=== PATIENT | female | born 1955 | race Caucasian/White ===

== ENCOUNTER 2018-07-12 19:18 | Emergency (ER) | payer OTHER, SELFPAY ==
[2018-07-12 19:20] VITALS: BP 167/81; PULSE 95; PULSE 99; RESP 18; TEMP 37.2; O2SAT 98; O2SAT 99; BMI 30.9
--- NOTE | 2018-07-12 19:38 | ED.DCSUM_ITS ---
- ER Visit Summary Date of Service: 07/12/18 Chief Complaint: Tooth pain, right-sided facial swelling History of Present Illness: The patient is a 63 F who has tooth pain and right- sided facial swelling. Started 3 days. She has a dull pain in the right upper part of her jaw. She noticed some facial swelling as well. She denies fevers. She went to a urgent care in [facility] who placed her on penicillin. She went back the next day because she had more swelling and they added clindamycin. She comes in today because of continued pain and swelling. She has appointment scheduled for this week. Physical Examination: Vital signs reviewed. HEENT exam reveals right-sided facial swelling. There is no gingival abscess. She does have tenderness to tooth percussion at tooth #2 and 3. There is no cervical lymphadenopathy. Test Results: None performed Emergency Department Course and Treatment: She states that the provider at this urgent care tried to do an incision and drainage. There is no focal area of abscess. This is just generalized facial swelling likely from a tooth infection. I will give her 1 dose of IV clindamycin here. She will need to follow-up with her dentist this week. She will continue NSAIDs for pain. Treatment Plan: [] Disposition: Discharge Impression: Odontalgia, right sided facial swelling This note was generated with [employer] dictation software. It may contain incorrect words, spelling, and punctuation that were not noted in review of the chart prior to signing ED Disposition - Plan for ED Patient: Chief Complaint: Dental Referrals: Reinaldo Juan DO [Primary Care Provider] -
--- NOTE | 2018-07-12 19:38 | ED.DEP ---
ED Disposition - Plan for ED Patient: Disposition: Home or Assisted Living Chief Complaint: Dental Instructions: ED Tooth Pain Referrals: Reinaldo Juan DO [Primary Care Provider] -
[2018-07-12 20:35] VITALS: PULSE 89; RESP 18; O2SAT 98
== END 2018-07-12 20:35 | disposition home or self-care (01) ==
LOC: ED 19:51
PROVIDERS: Emergency Provider Emergency Medicine; Family Provider Student in an Organized Health Care Education/Training Program; PCP Student in an Organized Health Care Education/Training Program
DX: K08.89 Other specified disorders of teeth and supporting structures (principal); R22.0 Localized swelling, mass and lump, head; I10 Essential (primary) hypertension; Z79.899 Other long term (current) drug therapy
CPT/HCPCS: 96365; 99283; A4216

== ENCOUNTER 2018-07-25 06:20 | Emergency (ER) | payer OTHER, SELFPAY ==
[2018-07-25 06:21] VITALS: BP 170/82; PULSE 76; RESP 15; TEMP 36.8; BMI 32.0
--- NOTE | 2018-07-25 06:38 | ED.VISSUMM ---
- ER Visit Summary Date of Service: 07/25/18 Chief Complaint: Facial swelling History of Present Illness: The patient is a 63 F presents to the emergency department facial swelling. Patient had a dental abscess about 2 weeks ago. She was placed on clindamycin and had improvement. She is been following with an woodworking bench carpenter and had a root canal. She states that they finished yesterday. She states after the procedure, she discussed with her oral surgeon about antibiotics. She states that she still had a full prescription of penicillin at home. She was counseled that if she had any swelling or pain that she should take it. She states that about 5 PM, she noted some swelling in her cheek. She took the penicillin, but feels like the swelling is gotten worse. She denies any trouble speaking or swallowing. She denies any fevers or chills. She has no history of immunosuppression. Physical Examination: Exam is relatively unremarkable. Patient does have evidence of dental abscess over the root canal tooth #4. There is some swelling of the right upper cheek. There is some mild drainage. The oropharynx is patent. There is no Julio angina. She has no trismus or stridor. Test Results: [] Emergency Department Course and Treatment: My suspicion is that she likely had some bacteria that was seated during the procedure. She has a draining abscess. It does not involve the submental space. She has no evidence of Julio angina. I am going to change her antibiotic to Augmentin for better tissue penetrance. She is given her first dose here. She was counseled on concerning symptoms and reasons to return. She will continue warm compresses to the area. She is going to follow-up with her oral surgeon on Friday. Treatment Plan: [] Disposition: Discharge Impression: 1. Dental abscess This note was generated with [employer] dictation software. It may contain incorrect words, spelling, and punctuation that were not noted in review of the chart prior to signing ED Disposition - Plan for ED Patient: Instructions: ED Abscess Dental Prescriptions: Amox/Clavulanate Tablet [Augmentin Tablet] 875 mg PO Q12H #20 tab Referrals: Reinaldo Juan DO [Primary Care Provider] -
[2018-07-25] MEDS: Amox/Clavulanate 875 MG Tablet PO (06:45)
[2018-07-25 06:46] VITALS: BP 170/82; PULSE 77; RESP 15; O2SAT 98
== END 2018-07-25 06:48 | disposition home or self-care (01) ==
LOC: ED 06:40
PROVIDERS: Emergency Provider Emergency Medicine; Family Provider Student in an Organized Health Care Education/Training Program; PCP Student in an Organized Health Care Education/Training Program
DX: K04.7 Periapical abscess without sinus (principal); I10 Essential (primary) hypertension; Z98.818 Other dental procedure status; Z79.899 Other long term (current) drug therapy
CPT/HCPCS: 99283

== ENCOUNTER 2021-06-26 09:03 | Outpatient (CLI) | payer MEDICARE, BC, SELFPAY | END 2021-06-26 23:59 | disposition short-term general hospital (02) | LOC: LABSPEC 09:03 | PROVIDERS: PCP Student in an Organized Health Care Education/Training Program; Visit Provider Physician Assistant Surgical | DX: U07.1 COVID-19 (principal) | CPT/HCPCS: 87635; U0003; U0005 ==

== ENCOUNTER 2021-09-15 09:29 | Emergency (ER) | payer MEDICARE, BC, SELFPAY ==
[2021-09-15 09:31] VITALS: BP 168/79; PULSE 76; RESP 18; TEMP 35.8; O2SAT 97; BMI 30.9
--- NOTE | 2021-09-15 09:56 | VDLE_ITS ---
Reason For Study: Swelling Procedure LEFT This is a venous duplex using B-mode, color GSV is normal. flow and spectral Doppler. CFV is compressible, spontaneous, phasic, Exam performed portable in ED. competent, and demonstrates normal A preliminary report was called and/or faxed augmentation. to Huseyin Ramirez SALES ORDER PROCESSOR. FV is compressible, spontaneous, phasic, competent and demonstrates normal augmentation. POP V is compressible, spontaneous, phasic, competent and demonstrates normal augmentation. T/P Trunk is compressible. PTV is compressible. LT PerV is compressible. VL/Venous Duplex US, Unilateral Interpretation Summary There is no evidence of left lower extremity deep vein thrombosis. Left great s aphenous vein appears patent and compressible segmentally. Ordering Physician: Huseyin Ramirez Referring Physician: Reinaldo Juan Performed By: Lisa Moctezuma, DIANNE, RVT
--- NOTE | 2021-09-15 09:58 | EDS_ITS ---
HPI <CARMEN Levi - Last Filed: 09/15/21 10:50> History of Present Illness Chief Complaint: Lower Extremity Injury Narrative Narrative: 66-year-old female with history of hypertension, upper lipidemia presents to the emergency department with complaints of left leg redness which she saw this morning. Patient said she was coming up the steps, saw some redness to her left calf and was concerned for blood clot. Patient is leaving for [place] tomorrow morning early, and she is concerned that she might have a blood clot and would like an ultrasound. Patient denies any difficulty breathing, chest pain, fever or chills. [facility] <CARMEN Levi - Last Filed: 09/15/21 10:50> [facility] Medical History (Updated 09/15/21 @ 10:49 by CARMEN Levi) Hypertension Home Medications ezetimibe [Zetia] 10 mg PO DAILY 09/15/21 [History Last Taken Unknown] lisinopril 10 mg PO DAILY 09/15/21 [History Last Taken Unknown] lisinopril-hydrochlorothiazide 1 tab PO QHS 09/15/21 [History Last Taken Unknown] Allergy/AdvReac Type Severity Reaction Status Date / Time acetaminophen [From Tylenol] Allergy Hives Verified 09/15/21 09:29 Surgical History (Updated 09/15/21 @ 09:38 by Lindsey Tom) History of History of tubal ligation Social History Smoking Status: Never smoker ROS <CARMEN Levi - Last Filed: 09/15/21 10:50> ROS ED ROS Narrative Constitutional: Negative for fever, chills, weight loss or gain, weakness Eyes: Negative for vision loss, vision change, double vision ENT: Negative for any hearing changes, ringing in the ears, discharge, pain Nose: Negative for any congestion, runny nose, sinus pain, allergies Throat: Negative for any sore throat, swelling, voice changes, Cardiovascular: Negative for any chest pain, tightness, palpitations, racing heartbeat Respiratory: Negative for any cough, sputum production, hemoptysis, shortness of breath, shortness of breath on exertion, Gastrointestinal: Negative for any abdominal pain, nausea, vomiting, diarrhea, constipation, blood in stool, blood in vomit : Negative for any urinary frequency, incontinence, dysuria, retention, blood in urine Muscle skeletal: Negative for any muscle joint pain, stiffness, myalgias, arthralgias, neck pain, back pain. Positive for left leg redness Neurological: Negative for any headache, dizziness, syncope, numbness or tingling Skin: Negative for any rashes, lumps, itching, abrasions, lacerations Psychiatric: Negative for any depression, anxiety, stress, suicidal ideation, homicidal ideation Hematologic: Negative for any easy bruising, excessive bruising, easy bleeding Allergies: Negative for any eczema, hives, rash EXAM <CARMEN Levi - Last Filed: 09/15/21 10:50> Physical Exam Const Vital Signs: 09/15/21 09:31 Temperature 96.4 F L Temperature Source Temporal Pulse Rate 76 Respiratory Rate 18 Blood Pressure 168/79 H Blood Pressure Mean 108 Pulse Ox 97 Oxygen Delivery Method Room Air Positive well nourished and well developed General Appearance ED: well developed HEENT Reports TM's clear Tympanic Membrane ED: Yes TM's clear Eyes PERRL and EOMs intact bilaterally Neck no lymphadenopathy and supple Chest Wall inspection of chest normal and palpation of chest normal Resp normal respiratory effort and clear to auscultation bilaterally Cardio regular rate and regular rhythm GI normal to inspection, nondistended, normoactive bowel sounds, non-tender and non-distended Auscultation: normoactive bowel sounds Palpation: soft Back/Spine no CVA tenderness Extremity normal to inspection Extremity Narrative: Patient's exam of the bilateral lower extremities were unremarkable. There is currently no redness, pain to palpation to the left calf. Patient states that she also believes that there is no redness at this time. However due to the patient's vacation coming tomorrow, she would like to be sure. Patient has +2 pedal pulses. Neuro oriented x3 and CN's II-XII intact bilaterally Sensorium / Orientation: alert Motor Exam: strength 5/5 throughout Psych mental status grossly normal Skin no rashes or lesions noted <Dr. Nena Yang DO - Last Filed: 09/15/21 10:17> Physical Exam Const Vital Signs: 09/15/21 09:31 Temperature 96.4 F L Temperature Source Temporal Pulse Rate 76 Respiratory Rate 18 Blood Pressure 168/79 H Blood Pressure Mean 108 Pulse Ox 97 Oxygen Delivery Method Room Air MDM <CARMEN Levi - Last Filed: 09/15/21 10:50> [facility] Narrative Medical decision making narrative: Patient appears well, patient appears nontoxic, vital signs are stable. Patient presents to the emergency department with left leg redness, concern for a DVT. Patient's physical examination was grossly unremarkable, patient's ultrasound of the left lower extremity was negative for any DVT. Patient was relieved, patient will get out every so often during her long road trips and walk around, perform gentle stretching. Patient struck to return for any worsening redness or swelling to the lower extremities, chest pain, shortness of breath. At this time, patient stable for discharge. <Dr. Nena Yang DO - Last Filed: 09/15/21 10:17> [facility] Narrative Medical decision making narrative: I have personally performed a face to face assessment of the patient and have reviewed the STEVIE Note. I performed a substantive portion of the visit including all aspects of the following. My ricardo findings include: History is [patient presents with redness to her left leg that she noted this morning when walking down the basement steps. Patient concerned about a DVT. Patient is going to be traveling and wants to make sure she does not have a blood clot. She denies any trauma to her leg. Denies recent travel or surgery. No prior history of PE or DVT. She denies chest pain or shortness of breath. She denies fevers.] Exam is [HEENT-PERRLA, EOMI. Cranial nerves II through XII grossly intact. TMs clear. Mucous membranes moist. No adenopathy. Cardiovascular-regular rate and rhythm without murmur or ectopy Lungs-clear to auscultation, chest wall stable without crepitus or subcu emphysema Abdomen-normoactive bowel sounds, soft, nontender, no rebound or rigidity, no peritoneal signs. Extremities-intact ?4, normal range of motion, normal pulses, atraumatic. No ropes or cords palpated to the left lower extremity. No evidence of cellulitis. No edema noted. Neurovascularly intact.] Medical Decison Making [patient had a venous Doppler of the left lower extremity that was negative for DVT. At this point I do not appreciate any abnormalities to her leg. Patient advised to follow-up with her primary care physician as needed.] Other additions or changes: [None] Discharge Plan Triage Chief Complaint: Lower Extremity Injury ED Midlevel Provider: Huseyin Ramirez ED Provider: Nena Yang Dx/Rx/DC Orders Clinical Impression: Left leg pain Instructions: ED Myalgias Prescriptions: No Action lisinopril-hydrochlorothiazide 20-12.5 mg tablet 1 tab PO QHS RF: 0 lisinopril 10 mg tablet 10 mg PO DAILY RF: 0 ezetimibe [Zetia] 10 mg Tablet 10 mg PO DAILY RF: 0 Primary Care Provider: Reinaldo Juan Referrals: Reinaldo Juan DO [Primary Care Provider] - Activity Restrictions/Additional Instructions: You had a negative venous duplex today of the left leg. Please get out of your car several times during a road trip and stretch and walk around. Print Language: Portuguese Disposition Disposition: Home, Self Care
== END 2021-09-15 11:12 | disposition home or self-care (01) ==
LOC: ED 10:50
PROVIDERS: Emergency Provider Emergency Medicine; PCP Student in an Organized Health Care Education/Training Program; Visit Provider Emergency Medicine
DX: M79.605 Pain in left leg (principal); I10 Essential (primary) hypertension; Z79.899 Other long term (current) drug therapy
CPT/HCPCS: 93971; 99282

== ENCOUNTER 2024-03-13 16:53 | Emergency (ER) | payer MEDICARE, OTHER, SELFPAY ==
[2024-03-13 16:54] VITALS: BP 159/84; PULSE 93; RESP 17; TEMP 36.6; O2SAT 99; BMI 29.3
--- NOTE | 2024-03-13 16:56 | EKG12_ITS ---
Test Reason : CP Blood Pressure : / mmHG Vent. Rate : 086 BPM Atrial Rate : 086 BPM P-R Int : 160 ms QRS Dur : 076 ms QT Int : 380 ms P-R-T Axes : 057 012 030 degrees QTc Int : 454 ms Normal sinus rhythm Normal ECG Confirmed by ANAYELI LOPEZ MD ([id number]), field map editor KADEN DONALD ([id number]) on 03/16/2024 1:49:51 PM Referred By: Confirmed By:ANAYELI LOPEZ MD
--- NOTE | 2024-03-13 17:12 | RAD_ITS ---
INDICATION: chest pain EXAMINATION/TECHNIQUE: X-RAY - XR Chest 1 View COMPARISON: No relevant prior comparison study available FINDINGS: LINES/DEVICES: None. LUNGS: No consolidation. No pneumothorax. MEDIASTINUM: Aorta is atherosclerotic. CARDIAC SILHOUETTE: Not enlarged. BONES AND SOFT TISSUES: No acute abnormalities. RAD/Chest 1 View (Portable) IMPRESSION: No evidence of active intrathoracic disease. Electronically Signed: Nataly Deluna MD at 19:14 EDT ,
[2024-03-13 17:56] LABS: Absolute Lymphocyte Count 2.66 X10^3/uL (0.83-4.51); Absolute Neutrophil Count 8.6 X10^3/uL (2.0-7.7); Basophil# 0.08 X10^3/uL; Basophil% 0.6 % (0-1); Eosinophils% 0.8 % (0-5); Hematocrit 44.2 % (37-47); Hemoglobin 14.7 g/dL (12.0-15.0); Lymphocyte # 2.66 X10^3/ul (0.83-4.51); Lymphocyte % 21.6 % (19-41); Mean Corp Hgb Conc 33.3 g/dL (32-36); Mean Corpuscular Hgb 30.1 pg (27.0-32.0); Mean Corpuscular Volume 90.6 fL (81-99); Mean Platelet Vol. 10.7 fl (6.2-12.0); Monocyte# 0.77 X10^3/uL; Monocyte% 6.3 % (0-10); NRBC Flagged by Analyzer 0 % (0-5); Neutrophil # 8.63 X10^3/uL (2.7-7.7); Neutrophil % 70.1 % (47-70); Platelet Count 174 K/mm3 (150-450); RBC Distribution Width CV 12.9 % (11.6-14.6); RBC Distribution Width SD 42.7 fl (35.1-43.9); Red Blood Count 4.88 M/mm3 (4.2-5.4); White Blood Count 12.3 K/mm3 (4.4-11.0)
[2024-03-13 18:18] LABS: Anion Gap 7 (5-15); BUN 19 mg/dL (7-18); BUN/Creat Ratio 20.6 RATIO (10-20); Calcium,Total 9.1 mg/dL (8.5-10.1); Chloride 103 mmol/L (98-107); Creatinine, Serum 0.92 mg/dL (0.55-1.02); EST Glomerular Filtration Rate 64 mL/min (>60); Est Glom Filt Rate - Afr Amer 77 mL/min (>60); Glucose 164 mg/dL (74-106); Sodium Level 137 mmol/L (136-145); Troponin-I HS (w/2H Reflex) 9 pg/mL (3.0-54.0)
--- NOTE | 2024-03-13 18:47 | EDS_ITS ---
HPI History of Present Illness Chief Complaint: Chest Pain [facility] Medical History (Updated 09/23/21 @ 00:01 by Mik Reyes) Hypertension Home Medications ?Medication ?Instructions ?Recorded ?Last Taken ?Type ezetimibe 10 mg tablet (Zetia) 10 mg PO DAILY 09/15/21 Unknown History lisinopril 10 mg tablet 10 mg PO DAILY 09/15/21 Unknown History lisinopril 20 1 tab PO QHS 09/15/21 Unknown History mg-hydrochlorothiazide 12.5 mg tablet benzonatate 100 mg capsule 100 mg PO TID PRN cough #20 caps 03/13/24 Unknown Rx Allergy/AdvReac Type Severity Reaction Status Date / Time acetaminophen (From Tylenol) Allergy Hives Verified 03/13/24 16:54 Surgical History (Updated 09/15/21 @ 09:38 by Lindsey Tom) History of History of tubal ligation Social History Smoking Status: Never smoker EXAM Physical Exam Const Vital Signs: 03/13/24 16:54 03/13/24 16:56 03/13/24 18:30 Temperature 97.9 F Temperature Source Temporal Pulse Rate 93 Respiratory Rate 17 Respiratory Effort Normal Non-Labored Blood Pressure 159/84 H Blood Pressure Mean 109 Pulse Ox 99 Oxygen Delivery Method Room Air Room Air 03/13/24 19:15 03/13/24 20:00 03/13/24 20:15 Temperature Temperature Source Pulse Rate 83 80 76 Respiratory Rate 20 H 19 H 21 H Respiratory Effort Blood Pressure 155/75 H 130/54 H 103/72 Blood Pressure Mean 99 74 78 Pulse Ox Oxygen Delivery Method 03/13/24 21:00 Temperature 98 F Temperature Source Pulse Rate 76 Respiratory Rate 18 Respiratory Effort Blood Pressure 138/67 H Blood Pressure Mean 90 Pulse Ox 98 Oxygen Delivery Method MDM MDM MDM Narrative Medical decision making narrative: HISTORY OF PRESENT ILLNESS: 69-year-old female presents with concern for lightheadedness, chest pain and nearly passing out. She states this began at 3 PM approximately 3 hours prior to arrival. Lasted for several minutes. No she was initially hot they became dizzy and folic she was in a pass out. She not lose consciousness. She laid down and symptoms resolved she notes no symptoms at this time. She further states she had no chest pain, headache, abdominal pain. No recent nausea vomiting She does note travel to [place] several weeks ago and since then she has had a mild cough is nonproductive The patient denies recent surgery in the last 4 weeks or immobilization in the last 3 days, denies previous diagnosis of DVT or PE, hemoptysis, unilateral leg swelling or malignancy with treatment the last 6 months or palliative. No estrogen use noted. Patient denies sudden onset of pain, no tearing sensation, no migratory symptoms, no new numbness, weakness or loss of sensation. Patient denies family history or personal history of Connective tissue disorders (Marfan's Syndrome, Elvia Danlos etc) REVIEW OF SYSTEMS: Pertinent positives: Near syncope, lightheadedness, chest pain, diaphoresis Pertinent negatives: Leg swelling, hemoptysis, syncope, focal neurologic PHYSICAL EXAM: Nursing triage notes reviewed, Vital signs reviewed Constitutional: please see mdm HENT: MMM Eyes: Pupils equal round and reactive to light, Extraocular muscles intact Neck: No stridor, no JVD, full neck ROM Lungs: Clear to auscultation, No wheezing or rales. No increased work of breathing, no conversational dyspnea, no accessory muscle use, no nasal flaring. No respiratory distress noted Heart: Regular rate and rhythm, No murmurs, No rubs and No gallops, 2+ distal pulses (radial, femoral, posterior tibial) in all extremities Abdomen: Soft, there is no tenderness, rigidity, rebound or guarding, no obvious peritoneal signs, no palpable pulsatile abdominal masses, no auscultated abdominal bruit : No CVAT Extremities: No edema Neuro: No focal neurological deficits, cranial nerves II through XII intact, 5/5 strength in all extremities. Intact sensation to light touch in all extremities, 2+ reflexes bilateral patella tendons. Normal gait. No ataxia. Skin: No rash or lesions noted MEDICAL DECISION MAKING: Chief Complaint: Chest pain, lightheadedness, near syncope External records reviewed: Reviewed prior medications, diagnoses Factors affecting care: Hyperlipidemia, hypertension MDM Narrative: The patient was initially hypertensive with a blood pressure 159/84 otherwise afebrile and nontoxic-appearing. Exam without focal cardiopulmonary normalit ies. No focal neurologic deficits. No stigmata of VTE, CHF aortic dissection or PE. I considered the following differential diagnosis: ACS, arrhythmia, anemia, electro disturbance, dehydration, ALL IMAGES (IF OBTAINED) HAVE BEEN PERSONALLY REVIEWED AND INTERPRETED BY MYSELF. Protocol orders were obtained in triage secondary to poor department of conditions including high volumes and high acuity. CBC, troponin with delta, BNP, chest x-ray and EKG obtained in triage. EKG was reviewed and showed normal sinus rhythm, normal axis, normal intervals, no STEMI CBC showed leukocytosis suggestive of systemic summation, no anemia or thrombocytopenia BMP without evidence of significant electrolyte abnormalities, no anion gap, no acute kidney injury. High-sensitivity troponin is negative, no evidence of myocardial ischemia x 2 I have personally reviewed the patient's chest x-ray. Chest x-ray is unremarkable for pulmonary edema, pneumothorax, pneumonia or focal cardiopulmonary abnormality. Upon reassessment patient's blood pressure improved to 103/72. The synthesis of the patient's history, physical exam, labs images suggest no acute life-limiting etiology. May have been a vasovagal event given warmth, dizziness that resolved upon position change with no prolonged confusion or postictal state. There was no clinical or physical exam evidence to suggest PE, aortic dissection or CHF. Patient's vitals are stable her labs images are unremarkable she is appropriate for discharge home for close outpatient follow-up for Holter monitor and possible stress testing if indicated. Given report of ongoing cough will prescribe Tessalon Perles for symptomatic relief. The patient and/or family, caregivers express understanding. The patient and/or family, caregivers agrees with the plan. Shared decision making: I will have a discussion with the patient and or visitors regarding risk/benefits of further testing or admission. They will be made aware of of the risk/benefits inherent in this decision they will be given the opportunity to voice understanding. Total critical care time today provided was at least 0 minutes. This excludes separately billable procedures. Critical care time (if documented) is secondary to the patient having high probability of clinically significant/life threatening deterioration in the patient's condition which required my urgent intervention. Impression: 1. Near syncope 2. History of hypertension Dispo: Discharge home This note was generated with [employer] dictation software. It may contain incorrect words, spelling, and punctuation that were not noted in review of the chart prior to signing. Lab Data Labs: Laboratory Results - last 24 hr 03/13/24 03/13/24 17:45 20:00 WBC 12.3 H RBC 4.88 Hgb 14.7 Hct 44.2 MCV 90.6 MCH 30.1 MCHC 33.3 RDW Std Deviation 42.7 RDW Coeff of Le[place] 12.9 Plt Count 174 MPV 10.7 Immature Gran % (Auto) 0.600 Neut % (Auto) 70.1 H Lymph % (Auto) 21.6 [place] % (Auto) 6.3 Eos % (Auto) 0.8 Baso % (Auto) 0.6 Absolute Neuts (auto) 8.6 H Absolute Lymphs (auto) 2.66 Nucleated RBC % 0 Sodium 137 Potassium 4.0 Chloride 103 Carbon Dioxide 28.0 Anion Gap 7 BUN 19 H Creatinine 0.92 Estim Creat Clear Calc 61.60 Est GFR (MDRD) Af Amer 77 Est GFR (MDRD) Non-Af 64 BUN/Creatinine Ratio 20.6 H Glucose 164 H Calcium 9.1 Troponin I High Sens 9 10 Radiography Diagnostic Testing: Clinical Impression(s) from Imaging Studies Chest X-Ray 03/13/24 17:12 IMPRESSION: No evidence of active intrathoracic disease. Electronically Signed: Nataly Deluna MD at 19:14 EDT , Discharge Plan Triage Chief Complaint: Chest Pain ED Provider: Clay Martinez Dx/Rx/DC Orders Instructions: ED Cough Chronic Uncertain Cause Adult, ED Near-Fainting, Uncertain Cause Prescriptions: New benzonatate 100 mg capsule 100 mg PO TID PRN (Reason: cough) Qty: 20 0RF No Action lisinopril-hydrochlorothiazide 20-12.5 mg tablet 1 tab PO QHS Patient Comments: TAKE 1 TABLET BY MOUTH EVERY DAY IN THE MORNING lisinopril 10 mg tablet 10 mg PO DAILY Patient Comments: TAKE 1 TABLET BY MOUTH ONCE DAILY. TAKE AT BEDTIME ezetimibe [Zetia] 10 mg Tablet 10 mg PO DAILY Primary Care Provider: Reinaldo Juan Referrals: Reinaldo Juan DO [Primary Care Provider] - Activity Restrictions/Additional Instructions: Thank you for trusting us with your care today! Your labs images were unremarkable for signs of a life-threatening disease including heart attack, significant blood loss, significant electrolyte abnormality, kidney dysfunction, lung pathology, heart failure. Your symptoms are unclear at this time but likely do not represent a life-threatening process. In terms of her cough you are prescribed Tessalon Perles. Please take Tylenol (2 pills, 650 mg), ibuprofen (2 pills, 400 mg) every 6 hours as needed for pain and fever control. Please return to the emergency department if your symptoms change or worsen. Please follow with your primary care physician for further outpatient evaluation and management. Print Language: Ukrainian Disposition Disposition: Home, Self Care
[2024-03-13 19:15] VITALS: BP 155/75; PULSE 83; RESP 20
[2024-03-13 19:51] LABS: Reflex Troponin-HS? (from REC) Y
[2024-03-13 20:00] VITALS: BP 130/54; PULSE 80; RESP 19
[2024-03-13 20:15] VITALS: BP 103/72; PULSE 76; RESP 21
[2024-03-13 20:40] LABS: Troponin-I HS 10 pg/mL (3.0-54.0)
[2024-03-13 21:00] VITALS: BP 138/67; PULSE 76; RESP 18; TEMP 36.6; O2SAT 98
== END 2024-03-13 21:45 | disposition home or self-care (01) ==
PROVIDERS: Emergency Provider Emergency Medicine; PCP Student in an Organized Health Care Education/Training Program; Visit Provider Emergency Medicine
DX: R55 Syncope and collapse (principal); R07.9 Chest pain, unspecified; I10 Essential (primary) hypertension; E78.5 Hyperlipidemia, unspecified; R05.9 Cough, unspecified; Z79.899 Other long term (current) drug therapy
CPT/HCPCS: 71045; 80048; 84484; 85025; 93005; 99283; J2354